=== PATIENT | male | born 1945 | race Caucasian/White ===

== ENCOUNTER → 2016-06-30 | Outpatient (CLI) | payer BC ==
[~2016-06-30] MED LIST: CEPH-507 PO; CLIN-80 PO; DAPS25TA2 PO; LISI10TA2 PO; VICODIN 5-325 MG TAB PO
--- NOTE | 2016-06-30 13:13 | Diagnostic Imaging Report ---
PA and lateral chest at 1218 hours. INDICATION: Cough. There are no prior studies available for comparison. FINDINGS: The heart is enlarged and there are sternotomy wires and surgical clips evident consistent with prior coronary artery bypass procedure. There is minimal scar formation in each lung base. The lungs are otherwise generally clear. There is no sign of failure, pneumonia or pleural effusion to suggest an acute abnormality. The mediastinum is not widened. The osseous structures are intact. IMPRESSION: There is cardiomegaly and evidence of prior cardiac surgery, but there is no sign of an acute cardiopulmonary abnormality. Dictated by: Dictated on workstation # [id number]
== END ==
LOC: RAD 11:54
PROVIDERS: ATTEND Family Medicine
DX: I51.7 Cardiomegaly (principal); R05 Cough
CPT/HCPCS: 71020

== ENCOUNTER 2016-08-02 08:15 | Emergency (ER) | payer BC ==
[~2016-08-02] VITALS: Ht 177.8 cm; Wt 104.8 kg
[2016-08-02] MEDS ORDERED: ASPI-586 PO (08:34)
[2016-08-02] MEDS ORDERED: DOXY100T2 PO (09:06)
--- NOTE | 2016-08-02 09:06 | ED Integumentary General ---
General Chief Complaint: Bite-Animal/Human/Insect Stated Complaint: R LEG SORE ON CALF Nursing Triage Note: PT CO R CALF POSSIBLY HAVING A SPIDER BITE, AREA IS REDDEND W BRUISE NOTED. APPROX 8CM LENGTH AND 3CM WIDE. PT DENIES PAIN TO AREA BUT STATES DOES HAVE ITCHING. STARTED ITCHING APPROX 1900 LAST PM Source: patient Exam Limitations: no limitations History of Present Illness Time seen by provider: 08:54 Initial Comments This 70-year-old gentleman presents to the emergency room with discoloration on the right lateral calf. He reports it was intensely pruritic yesterday and he scratched hard on the skin for a while. He now has a petechial and ecchymotic discoloration. He is concerned because it has a similar appearance to prior spider bites, one of which required surgical intervention. The itching has now resolved. Skin is nonblanching and not warm. He has no other symptoms. Allergies and Home Medications Allergies Coded Allergies: No Known Drug Allergies (Unverified , 10/08/13) Home Medications Aspirin 81 Mg Tablet.dr, 81 MG PO DAILY, (Reported) Doxycycline Hyclate 100 Mg Tablet, 100 MG PO BID, #14 Prescribed by: LIZETT FELIX on 08/02/16 0906 Constitutional: no symptoms reported EENTM: no symptoms reported Respiratory: no symptoms reported Cardiovascular: no symptoms reported Gastrointestinal: no symptoms reported Genitourinary: no symptoms reported Musculoskeletal: no symptoms reported Skin: see HPI Psychiatric/Neurological: No Symptoms Reported Endocrine: No Symptoms Reported Past Fevppiq-Nkzcfo-Admzpb Hx Patient Social History Alcohol Use: Denies Use Recreational Drug Use: No Smoking Status: Never a Smoker Recent Foreign Travel: No Contact w/Someone Who Travel: No Recent Infectious Disease Expo: No Recent Hopitalizations: No Immunizations Up To Date Tetanus Booster (TDap): Less than 5yrs Date of Pneumonia Vaccine: Oct 11, 2013 Surgeries HX Surgeries: Yes (HERNIA, I&D SPIDER BITE INNER LEFT GROIN) Surgeries: CABG Respiratory Hx Respiratory Disorders: No Cardiovascular Hx Cardiac Disorders: Yes (STENTS, BYPASS) Cardiac Disorders: Coronary Artery Disease, Hypertension Neurological Hx Neurological Disorders: No Reproductive System Hx Reproductive Disorders: No Sexually Transmitted Disease: No Genitourinary Hx Genitourinary Disorders: No Gastrointestinal Hx Gastrointestinal Disorders: No Musculoskeletal Hx Musculoskeletal Disorders: No Endocrine Hx Endocrine Disorders: No HEENT HX ENT Disorders: No Cancer Hx Cancer: No Psychosocial Hx Psychiatric Problems: No Integumentary HX Skin/Integumentary Disorder: No Blood Transfusions Hx Blood Disorders: No Family Medical History Family Medial History: Diabetes mellitus 19 FATHER Myocardial infarction 19 FATHER Physical Exam Vital Signs Vital Sign - Last 12Hours 08/02/16 08:20 Temp 96.5 Pulse 61 Resp 18 B/P (MAP) 160/87 Pulse Ox 97 Capillary Refill : Less Than 3 Seconds General Appearance: WD/WN, no apparent distress HEENT: normal ENT inspection Respiratory: normal breath sounds Neurologic/Psychiatric: alert, normal mood/affect, oriented x 3, depressed affect Skin: warm/dry Skin Problem Location: lower extremities Skin Problem Character: petechial, other (ecchymotic and petechial patch of skin on the right lateral calf. No heat, blanching erythema, swelling, or tenderness) Progress/Results/Core Measures Results/Orders Vital Signs/I&O Vital Sign - Last 12Hours 08/02/16 08/02/16 08:20 09:12 Temp 96.5 96.5 Pulse 61 61 Resp 18 18 B/P (MAP) 160/87 Pulse Ox 97 97 Blood Pressure Mean: 111 Progress Note : Progress Note Skin changes could be related to petechial trauma from intense scratching or from a spider bite. Doxycycline was prescribed for secondary infection prevention. Margins of the affected skin were marked with a skin marker. Departure Impression Impression: Primary Impression: Petechial rash Disposition: 01 HOME, SELF-CARE Condition: Stable Departure-Patient Inst. Decision time for Depature: 09:00 Referrals: LEIA ARMSTRONG MD (PCP/Family) Primary Care Physician Patient Instructions: Skin Rash Add. Discharge Instructions: Complete your antibiotic as prescribed. Please be aware of this antibiotic may cause some sensitivity. Return to care if symptoms are worsening or if you develop new symptoms such as fever. All discharge instructions reviewed with patient and/or family. Voiced understanding. Scripts Doxycycline Hyclate (Doxycycline Hyclate) 100 Mg Tablet 100 MG PO BID, #14 TAB Prov: LIZETT SWEENEY MD 08/02/16 LIZETT SWEENEY MD August 02, 2016 09:06
[2016-08-02 09:12] VITALS: BP 160/87
== END 2016-08-02 09:13 | disposition home or self-care (01) ==
LOC: EDUNIT# 08:15 → ER 08:16
DX: R21 Rash and other nonspecific skin eruption (principal); R23.3 Spontaneous ecchymoses; I10 Essential (primary) hypertension; Z95.1 Presence of aortocoronary bypass graft
CPT/HCPCS: 99283

== ENCOUNTER → 2022-09-02 | Outpatient (CLI) | payer MEDICARE, OTHER ==
[~2022-09-02] MED LIST changes: +ASPI-586 PO; +DOXY100T2 PO
== END ==
LOC: CARD 09:17
PROVIDERS: ATTEND Family Medicine
DX: I08.3 Combined rheumatic disorders of mitral, aortic and tricuspid valves (principal); I50.20 Unspecified systolic (congestive) heart failure; I25.10 Atherosclerotic heart disease of native coronary artery without angina pectoris
CPT/HCPCS: 93306

== ENCOUNTER → 2022-09-16 | Outpatient (CLI) | payer MEDICARE | LOC: CARD 13:05 | PROVIDERS: ATTEND Internal Medicine Cardiovascular Disease | DX: R00.1 Bradycardia, unspecified (principal) | CPT/HCPCS: 93225; 93226 ==

== ENCOUNTER 2022-10-07 17:52 | Inpatient (IN) | payer MEDICARE ==
[~2022-10-07] VITALS: Ht 175.2 cm; Wt 72.1 kg
[2022-10-07 18:27] LABS: BASOPHILS % (AUTO) 0 % (0-10); EOSINOPHILS # (AUTO) 0.1 10^3/uL (0.0-0.3); EOSINOPHILS % (AUTO) 2 % (0-10); HEMATOCRIT 30 % (40-54); HEMOGLOBIN 10.7 g/dL (13.3-17.7); LYMPHOCYTES # (AUTO) 0.5 10^3/uL (1.0-4.0); LYMPHOCYTES % (AUTO) 7 % (12-44); MEAN CORPUSCULAR HEMOGLOBIN 34 pg (25-34); MEAN CORPUSCULAR HGB CONC 35 g/dL (32-36); MEAN CORPUSCULAR VOLUME 96 fL (80-99); MEAN PLATELET VOLUME 8.6 fL (9.0-12.2); MONOCYTES # (AUTO) 0.5 10^3/uL (0.0-1.0); MONOCYTES % (AUTO) 7 % (0-12); NEUTROPHILS # (AUTO) 5.5 10^3/uL (1.8-7.8); NEUTROPHILS % (AUTO) 83 % (42-75); PLATELET COUNT 223 10^3/uL (130-400); WHITE BLOOD COUNT 6.6 10^3/uL (4.3-11.0)
[2022-10-07 18:40] LABS: ALBUMIN 3.2 GM/DL (3.2-4.5)
[2022-10-07 18:41] LABS: POTASSIUM 5.1 MMOL/L (3.6-5.0)
[2022-10-07 18:42] LABS: CALCIUM 8.2 MG/DL (8.5-10.1)
--- NOTE | 2022-10-07 18:42 | ED General ---
General Chief Complaint: General Problems/Pain Stated Complaint: IRR LAB RESULTS Nursing Triage Note: Patient states he is here in ER today d/t abnormal lab findings. Patient states he potassium level is low and chloride is low. Patient denies any symptoms. Patient denies any pain anywhere. Source of Information: Patient, Spouse History of Present Illness Date Seen by Provider: Oct 07, 2022 Time Seen by Provider: 18:10 Initial Comments PT ARRIVES VIA POV FROM HOME WIHT AND ANOTHER MALE PT STATES HE HAD LAB DONE LAST WEEK AND AGAIN TODAY--ORDERED THROUGH DR. VILLAR'S OFFICE AND DONE BY [employer] ( OUTSIDE LAB COMPANY CAME TO HIS HOUSE AND [place] [employer]) STATES DR. VILLAR'S OFFICE CALLED TODAY AND WAS TOLD HIS POTASSIUM AND CHLORIDE WERE "CRITICALLY LOW" AND WAS TOLD TO COME TO ER IMMEDIATELY--THEY ALSO STATE "IT IS THE SAME IT WAS LAST WEEK"--BUT WAS NOT ADVISED TO GO TO ER LAST WEEK. HAS NOT SEEN DR. VILLAR OR HIS PCP SINCE LAST WEEK PT STATES HE WAS STARTED ON A DIURETIC 3 WEEKS AGO FOR EDEMA--DOES NOT KNOW NAMES OF MEDICATIONS HE STATES HE LOST 29# IN 2 WEEKS AND NO LONGER HAS SWELLING STATES HE FEELS FINE AND HAS NO COMPLAINTS NO CHEST PAIN NO MORE SHORT OF BREATH THAN NORMAL PT HAS HISTORY OF CAD WITH MULTIPLE STENTS AND THEN CABG IN 2014 ECHOCARDIOGRAM 09/02/22-0EF 25-30% PER MED RECONCILIATION, PT HAS BEEN PRESCRIBED LOSARTAN AND LASIX. ON 09/10/22, SPIRONOLACTONE, METOLAZONE, KCL AND FARXIGA WERE ADDED. PCP: DR. ARMSTRONG [facility] OPERATOR: DR. VILLAR Allergies and Home Medications Allergies Coded Allergies: No Known Drug Allergies (Unverified , 10/08/13) Patient Home Medication List Home Medication List Reviewed: Yes Aspirin (Aspir 81) 81 Mg Tablet.dr, 81 MG PO DAILY, (Reported) Entered as Reported by: COTY KARIMI on 08/02/16 0834 Doxycycline Hyclate (Doxycycline Hyclate) 100 Mg Tablet, 100 MG PO BID Prescribed by: LIZETT FELIX on 08/02/16 0906 Review of Systems Review of Systems Constitutional: no symptoms reported Respiratory: see HPI Cardiovascular: no symptoms reported Gastrointestinal: no symptoms reported Musculoskeletal: no symptoms reported Skin: other (FAMILY STATES HE HAS SORES ON HIS BUTTOCKS--HAS BEEN MOSTLY LAYING IN BED FOR UNKNOWN LENGTH OF TIME) Psychiatric/Neurological: No Symptoms Reported Hematologic/Lymphatic: No Symptoms Reported Immunological/Allergic: no symptoms reported Past Cdssofi-Libuou-Uwzbev Hx Patient Social History Tobacco Use?: No Use of E-Cig and/or Vaping dev: No Substance use?: No Alcohol Use?: No Immunizations Up To Date Tetanus Booster (TDap): Less than 5yrs Influenza Vaccine Up-to-Date: Yes; Up-to-Date Past Medical History Surgeries: Yes (HERNIA, I&D SPIDER BITE INNER LEFT GROIN;MULTIPLE STENTS; 5 VESSEL CABG) Cardiac, CABG, Coronary Stent Respiratory: No Cardiac: Yes (STENTS, BYPASS) Chronic Edema/Swelling, Coronary Artery Disease, Hypertension Neurological: No Reproductive Disorders: No Sexually Transmitted Disease: No Gastrointestinal: No Musculoskeletal: No Endocrine: No Cancer: No Psychosocial: No Integumentary: No Blood Disorders: No Family Medical History Diabetes mellitus 19 FATHER Myocardial infarction 19 FATHER ECHOCARDIOGRAM 09/02/22--EF 25-30% Physical Exam Vital Signs Vital Signs - First Documented 10/07/22 18:03 Temp 35.2 Pulse 57 Resp 14 B/P (MAP) 99/58 (72) O2 Delivery Room Air Capillary Refill : Height, Weight, BMI Height: 5'10.00" Weight: 231lbs. oz. 104.070309ew; 23.00 BMI Method:Stated General Appearance: No Apparent Distress, WD/WN, Thin, Other (LOOKS OLDER THAN STATED AGE; SOMEWHAT LETHARGIC; WEARING A BATH WRAP AROUND HIS WAIST. DRIED URINE DOWN LEGS AND FEET. ) HEENT: PERRL/EOMI, Other (EYES SUNKEN; POOR DENTITION AND ONLY HAS A FEW TEETH) Respiratory: Normal Breath Sounds (DIMINISHED IN BASES), No Accessory Muscle Use, Other (MIKLDLY DYSPNEIC AT REST--TALKS IN 2-4 WORD PHRASES) Cardiovascular: No JVD, No Murmur, Bradycardia, Irregularly Irregular Gastrointestinal: Non Tender, Soft Extremity: Pedal Edema (TRACE ON LEFT. CHRONIC VENOUS STASIS CHANGES BILATERALLY. FAINT PEDAL PULSES ), Other (SCABBED WOUNDS AND OLD BRUISING TO LEFT FOREARM) Neurologic/Psychiatric: Alert, Oriented x3, No Motor/Sensory Deficits, Normal Mood/Affect, actuarial intern II-XII Norm as Tested Skin: Warm/Dry, Pallor Progress/Results/Core Measures Suspected Sepsis SIRS Temperature: Pulse: 57 Respiratory Rate: 14 Laboratory Tests 10/07/22 18:20: White Blood Count 6.6 Blood Pressure 99 /58 Mean: 72 Laboratory Tests 10/07/22 18:20: Creatinine 0.76, Platelet Count 223, Total Bilirubin 1.3H Results/Orders Lab Results Laboratory Tests Test 10/07/22 18:20 Range/Units White Blood Count 6.6 4.3-11.0 10^3/uL Red Blood Count 3.16 L 4.30-5.52 10^6/uL Hemoglobin 10.7 L 13.3-17.7 g/dL Hematocrit 30 L 40-54 % Mean Corpuscular Volume 96 80-99 fL Mean Corpuscular Hemoglobin 34 25-34 pg Mean Corpuscular Hemoglobin Concent 35 32-36 g/dL Red Cell Distribution Width 14.6 H 10.0-14.5 % Platelet Count 223 130-400 10^3/uL Mean Platelet Volume 8.6 L 9.0-12.2 fL Immature Granulocyte % (Auto) 1 % Neutrophils (%) (Auto) 83 H 42-75 % Lymphocytes (%) (Auto) 7 L 12-44 % Monocytes (%) (Auto) 7 0-12 % Eosinophils (%) (Auto) 2 0-10 % Basophils (%) (Auto) 0 0-10 % Neutrophils # (Auto) 5.5 1.8-7.8 10^3/uL Lymphocytes # (Auto) 0.5 L 1.0-4.0 10^3/uL Monocytes # (Auto) 0.5 0.0-1.0 10^3/uL Eosinophils # (Auto) 0.1 0.0-0.3 10^3/uL Basophils # (Auto) 0.0 0.0-0.1 10^3/uL Immature Granulocyte # (Auto) 0.0 0.0-0.1 10^3/uL Neutrophils % (Manual) 87 % Lymphocytes % (Manual) 4 % Monocytes % (Manual) 8 % Eosinophils % (Manual) 1 % Platelet Estimate ADEQUATE Poikilocytosis SLIGHT Sodium Level 115 *L 135-145 MMOL/L Potassium Level 5.1 H 3.6-5.0 MMOL/L Chloride Level 81 L 98-107 MMOL/L Carbon Dioxide Level 22 21-32 MMOL/L Anion Gap 12 5-14 MMOL/L Blood Urea Nitrogen 20 H 7-18 MG/DL Creatinine 0.76 0.60-1.30 MG/DL Estimat Glomerular Filtration Rate 93 BUN/Creatinine Ratio 26 Glucose Level 86 70-105 MG/DL Calcium Level 8.2 L 8.5-10.1 MG/DL Corrected Calcium 8.8 8.5-10.1 MG/DL Magnesium Level 1.8 1.6-2.4 MG/DL Total Bilirubin 1.3 H 0.1-1.0 MG/DL Aspartate Amino Transf (AST/SGOT) 28 5-34 U/L Alanine Aminotransferase (ALT/SGPT) 13 0-55 U/L Alkaline Phosphatase 88 40-136 U/L B-Type Natriuretic Peptide 3066.3 H <100.0 PG/ML Total Protein 5.9 L 6.4-8.2 GM/DL Albumin 3.2 3.2-4.5 GM/DL My Orders Orders - KELLI SHEPARD DO Ed Iv/Invasive Line Start (10/07/22 18:13) Monitor-Rhythm Ecg Trace Only (10/07/22 18:13) Cbc With Automated Diff (10/07/22 18:13) Comprehensive Metabolic Panel (10/07/22 18:13) Magnesium (10/07/22 18:13) Ua Culture If Indicated (10/07/22 18:13) Manual Differential (10/07/22 18:20) Ekg Tracing (10/07/22 18:22) Chest 1 View, Ap/Pa Only (10/07/22 18:35) Ed Iv/Invasive Line Start (10/07/22 18:50) Ns Iv 1000 Ml (Sodium Chloride 0.9%) (10/07/22 19:00) Bnp Cole (10/07/22 18:50) Enoxaparin Injection (Enoxaparin Injecti (10/07/22 19:45) Medications Given in ED Current Medications Medications Dose Ordered Sig/Moo Route Start Time Stop Time Status Last Admin Dose Admin Enoxaparin Sodium 70 mg ONCE ONCE SC 10/07/22 19:45 10/07/22 19:46 DC 10/07/22 19:45 70 MG Vital Signs/I&O 10/07/22 18:03 Temp 35.2 Pulse 57 Resp 14 B/P (MAP) 99/58 (72) O2 Delivery Room Air Capillary Refill : Blood Pressure Mean: 72 Progress Note : Progress Note PT STATES NORMAL HEART RATE 52-55, BP LOW 100'S/50'S NORMALLY. VITALS ON ARRIVAL: HR 40'S-50'S, BP 114/44. O2 SAT 97-99% ON ROOM AIR HEART RATE CONSISTENTLY IN THE 40'S, BP 90'S/40'S DURING ER STAY. AT TIME OF ADMIT, HR IN 50'S AND BP >100 SYSTOLIC, O2 SAT 100% ON ROOM AIR. PT HAD NO COMPLAINTS DURING ER STAY PERTINENT LAB: NA 115, K 5.1, BUN 20, CR 0.7, GLU 93, MG 1.8 HGB 10.7 BNP 3066 EKG WITH MUCH ARTIFACT. BRADYCARDIA WITH IVCD. APPEARS TO BE IN ATRIAL FIBRILLATION ON TELEMETRY, WELL EKG--LIMITED BY ARTIFACT PT DOES NOT HAVE HISTORY OF AFIB GIVEN: -IV FLUIDS -LOVENOX CXR WITH CHF AND PLEURAL EFFUSIONS FAMILY REPORTS AT TIME OF ADMIT THAT HE HAS A COUPLE OF SORES ON HIS BUTTOCKS AND REPORT THAT HE LAYS IN BED NEARLY ALL OF THE TIME DISCUSSED TEST RESULTS, NEED FOR ADMIT AND PT IS AGREEABLE TO PLAN REVIEWED PRIOR RECORDS, INCLUDING ER VISITS, ADMITS, TESTS/PROCEDURES ECG Initial ECG Impression Date: Oct 07, 2022 Initial ECG Impression Time: 18:32 Initial ECG Rate: 44 Initial ECG Intervals SC-NA QRS 156 QT/QTC 494/443 Initial ECG Comparisson: Changed (PRIOR EKG IN 2013) Comment MUCH ARTIFACT. RATE IS SLOW, IRREGULAR AND NO VISIBLE P-WAVES (LIMITED BY ARTIFACT), WITH IVCD INTERPRETED BY ME Diagnostic Imaging Comments CXR--PER RADIOLOGIST REPORT AT 1930 FINDINGS: Lungs/pleura: There is interval blunting of the right costophrenic angle region concerning for a small pleural effusion. There is mild bibasilar atelectasis. There is no pneumothorax. Mediastinum: There is interval slight prominence of the pulmonary vasculature centrally.. Pulmonary vasculature: Unremarkable. Heart: There is interval progression of cardiomegaly. There are postop change to the chest with sternotomy wires. Bones/extrathoracic soft tissue: There are degenerative spurs involving the thoracic spine. IMPRESSION: 1: There is interval progression of cardiomegaly with mild pulmonary vascular prominence centrally which has slightly progressed. Pericardial effusion also cannot be excluded. 2: There is a small right pleural effusion with mild bibasilar atelectasis. Reviewed: Reviewed by Me Departure Communication (Admissions) 1849--SPOKE WITH DR. ARMSTRONG. ACCEPTS PT FOR ADMIT. WILL CONSULT CARDIOLOGY IN AM. Impression Primary Impression: Hyponatremia Additional Impressions: Hyperkalemia Diuretics causing adverse effect in therapeutic use CHF (congestive heart failure) Bilateral pleural effusion HX OF CAD WITH CABG AND STENTS HX OF HTN Abnormal EKG Bradycardia Hypotension New onset atrial fibrillation Disposition: ADMITTED INPATIENT Condition: Stable Admissions Decision to Admit Reason: Admit from ER (General) Decision to Admit/Date: Oct 07, 2022 Time/Decision to Admit Time: 18:50 Departure-Patient Inst. Referrals: LEIA ARMSTRONG MD (PCP/Family) Primary Care Physician KELLI SHEPARD DO Oct 07, 2022 18:42
[2022-10-07 18:43] LABS: TOTAL PROTEIN 5.9 GM/DL (6.4-8.2)
[2022-10-07 18:45] LABS: BILIRUBIN,TOTAL 1.3 MG/DL (0.1-1.0)
[2022-10-07 18:47] LABS: CREATININE SERUM 0.76 MG/DL (0.60-1.30)
[2022-10-07 18:49] LABS: MAGNESIUM 1.8 MG/DL (1.6-2.4)
[2022-10-07 18:52] LABS: EOSINOPHILS % (MANUAL) 1 %; LYMPHOCYTES % (MANUAL) 4 %; MONOCYTES % (MANUAL) 8 %; NEUTROPHILS % (MANUAL) 87 %; PLATELET ESTIMATE ADEQUATE; POIKILOCYTOSIS SLIGHT
[2022-10-07] MEDS ORDERED: NS IV 1000 ML 1,000 ML IV SCH (19:00)
--- NOTE | 2022-10-07 19:26 | Diagnostic Imaging Report ---
CLINICAL INDICATION: Patient with dyspnea. Patient has abnormal lab findings with low potassium and chloride. EXAM: Portable chest x-ray upright view. COMPARISON: Chest x-ray dated 06/30/2016. FINDINGS: Lungs/pleura: There is interval blunting of the right costophrenic angle region concerning for a small pleural effusion. There is mild bibasilar atelectasis. There is no pneumothorax. Mediastinum: There is interval slight prominence of the pulmonary vasculature centrally.. Pulmonary vasculature: Unremarkable. Heart: There is interval progression of cardiomegaly. There are postop change to the chest with sternotomy wires. Bones/extrathoracic soft tissue: There are degenerative spurs involving the thoracic spine. IMPRESSION: 1: There is interval progression of cardiomegaly with mild pulmonary vascular prominence centrally which has slightly progressed. Pericardial effusion also cannot be excluded. 2: There is a small right pleural effusion with mild bibasilar atelectasis. Dictated by: Dictated on workstation # [id number]
[2022-10-07] MEDS ORDERED: ENOXAPARIN 80 MG/0.8 ML SYRINGE SC ONE (19:45)
[2022-10-07 21:03] VITALS: BP 102/62
[2022-10-07 21:15] VITALS: BP 113/53
[2022-10-07 21:30] VITALS: BP 105/58
[2022-10-07 21:45] VITALS: BP 99/75
[2022-10-07] MEDS: NS IV 1000 ML 1,000 ML IV SCH (21:59)
[2022-10-07 22:00] VITALS: BP 110/51
[2022-10-07] MEDS ORDERED: HYDROcodone/ACETAMINOPHEN 5 MG/325 MG TABLET ONE (22:12)
[2022-10-07] MEDS ORDERED: HYDROcodone/ACETAMINOPHEN 5 MG/325 MG TABLET PO PRN (22:15)
[2022-10-08] VITALS: BP 90/66
[2022-10-08 04:00] VITALS: BP 106/57
[2022-10-08 05:22] LABS: BASOPHILS % (AUTO) 0 % (0-10); EOSINOPHILS # (AUTO) 0.1 10^3/uL (0.0-0.3); EOSINOPHILS % (AUTO) 2 % (0-10); HEMATOCRIT 30 % (40-54); HEMOGLOBIN 10.7 g/dL (13.3-17.7); LYMPHOCYTES # (AUTO) 0.5 10^3/uL (1.0-4.0); LYMPHOCYTES % (AUTO) 9 % (12-44); MEAN CORPUSCULAR HEMOGLOBIN 34 pg (25-34); MEAN CORPUSCULAR HGB CONC 36 g/dL (32-36); MEAN CORPUSCULAR VOLUME 95 fL (80-99); MONOCYTES # (AUTO) 0.4 10^3/uL (0.0-1.0); MONOCYTES % (AUTO) 8 % (0-12); NEUTROPHILS % (AUTO) 80 % (42-75); PLATELET COUNT 225 10^3/uL (130-400)
[2022-10-08 05:41] LABS: CALCIUM 8.2 MG/DL (8.5-10.1); CREATININE SERUM 0.71 MG/DL (0.60-1.30); POTASSIUM 4.8 MMOL/L (3.6-5.0)
[2022-10-08] MEDS: NS IV 1000 ML 1,000 ML IV SCH (06:08)
--- NOTE | 2022-10-08 07:38 | History & Physicial ---
History of Present Illness History of Present Illness Reason for visit/HPI 77-year-old male admitted through emergency department late yesterday afternoon after presenting via private vehicle for abnormal labs. Cardiology had ordered labs for October 07, 2022 and he was found to have sodium of 115. Patient has been treated for congestive heart failure as well as significant peripheral edema of the lower extremities. He has apparently lost greater than 20 pounds o woodrow the past few weeks. He does report being very weak. He has not had any significant chest pain. He has been short of breath however especially with exertion. Recent echocardiogram from September 02 revealed 25-30% ejection fraction. He does have a history of coronary artery disease with multiple stents and then coronary artery bypass in 2014. His current meds include losartan and Lasix. He had been also on metolazone and Farxiga Per cardiology over the past few weeks. Date of Admission Oct 07, 2022 at 20:32 Date Seen by a Provider: Oct 08, 2022 Time Seen by a Provider: 06:45 I consulted on this patient on 10/08/22 07:33 Attending Physician Anton Armstrong MD Admitting Physician Admitting Physician: Anton Armstrong MD Attending Physician: Anton Armstrong MD Consult Allergies and Home Medications Allergies Coded Allergies: No Known Drug Allergies (Unverified , 10/08/13) Patient Home Medication List Home Medication List Reviewed: Yes Aspirin (Aspir 81) 81 Mg Tablet.dr, 81 MG PO DAILY, (Reported) Entered as Reported by: COTY KARIMI on 08/02/16 0834 Doxycycline Hyclate (Doxycycline Hyclate) 100 Mg Tablet, 100 MG PO BID Prescribed by: LIZETT FELIX on 08/02/16 0906 Past Lzfbbxb-Rywztv-Ubbwpt Hx Patient Social History Marrital Status: Number of Children: 2 Employed/Student: retired [employer] Smoke Exposure: No Recent Hopitalizations: No Alcohol Use?: No Immunizations Up To Date Tetanus Booster (TDap): Less than 5yrs Date of Pneumonia Vaccine: Oct 11, 2013 Surgeries Yes (HERNIA, I&D SPIDER BITE INNER LEFT GROIN;MULTIPLE STENTS; 5 VESSEL CABG) Cardiac, CABG, Coronary Stent Respiratory No Cardiovascular Yes (STENTS, BYPASS) Chronic Edema/Swelling, Coronary Artery Disease, Hypertension Neurological No Reproductive System Hx Reproductive Disorders: No Sexually Transmitted Disease: No Gastrointestinal No Musculoskeletal No Endocrine History of Endocrine Disorders: No Cancer No Psychosocial History of Psychiatric Problem: No Integumentary History of Skin or Integumenta: No Blood Transfusions History of Blood Disorders: No Family Medical History Other Significan Family Hx: ECHOCARDIOGRAM 09/02/22--EF 25-30% Family Hx: Diabetes mellitus 19 FATHER Myocardial infarction 19 FATHER Review of Systems Constitutional: see HPI Physical Exam Vital Signs Vital Signs - First Documented 10/07/22 10/07/22 18:03 21:03 Temp 35.2 Pulse 57 Resp 14 B/P (MAP) 99/58 (72) Pulse Ox 93 O2 Delivery Room Air Capillary Refill : Height, Weight, BMI Height: 5'10.00" Weight: 231lbs. oz. 104.493083pi; 23.48 BMI Method:Stated General Appearance: Mild Distress (Due to shortness of breath) Eyes: Bilateral Eye Normal Inspection HEENT: Pharynx Normal Neck: Supple Respiratory: Lungs Clear Cardiovascular: Regular Rate, Rhythm (Overall with periods of irregular irregular) Gastrointestinal: Soft Rectal: Deferred Back: Other (Open wounds buttocks) Neurologic/Psychiatric: Alert, Oriented x3 Skin: Normal Color (Somewhat pale) Comments [facility] [place] NAME: SANJEEV ALVA Narayan [facility] REC#: [id number] PT STATUS: REG ER : 1945 PHYSICIAN: KELLI SHEPARD DO ADMIT DATE: 10/07/22/ER Signed Date of Exam:10/07/22 CHEST 1 VIEW, AP/PA ONLY CLINICAL INDICATION: Patient with dyspnea. Patient has abnormal lab findings with low potassium and chloride. EXAM: Portable chest x-ray upright view. COMPARISON: Chest x-ray dated 06/30/2016. FINDINGS: Lungs/pleura: There is interval blunting of the right costophrenic angle region concerning for a small pleural effusion. There is mild bibasilar atelectasis. There is no pneumothorax. Mediastinum: There is interval slight prominence of the pulmonary vasculature centrally.. Pulmonary vasculature: Unremarkable. Heart: There is interval progression of cardiomegaly. There are postop change to the chest with sternotomy wires. Bones/extrathoracic soft tissue: There are degenerative spurs involving the thoracic spine. IMPRESSION: 1: There is interval progression of cardiomegaly with mild pulmonary vascular prominence centrally which has slightly progressed. Pericardial effusion also cannot be excluded. 2: There is a small right pleural effusion with mild bibasilar atelectasis. Dictated by: Dictated on workstation # [id number] Dict: 10/07/221919 Trans: 10/07/221999 [facility] [id number] Interpreted by: ROSALIND ROME MD Electronically signed by: ROSALIND ROME MD 10/07/221999 Assessment/Plan Assessment and Plan 1. Hyponatremia severe -Daily sodium checks -IV fluids consisting of normal saline at 120 cc/h currently 2. Hyperkalemia -Monitor 3. Congestive heart failurehistory of -Cardiology consultation 4. Coronary artery disease 5. Wounds to the buttocks -wound care consult 6. Lower extremity edema and this has improved -Careful hydration and monitoring of edema Admission Diagnosis 1. Hyponatremia severe 2. Hyperkalemia 3. Congestive heart failurehistory of 4. Coronary artery disease 5. Wounds to the buttocks 6. Lower extremity edema and this has improved Admission Status: Inpatient Order (span 2 midnights) Reason for Inpatient Admission: Cardiology consultation. Wound care consultation. IV fluid rehydration and monitoring of sodium ANTON ARMSTRONG MD Oct 08, 2022 07:38
[2022-10-08 07:43] VITALS: BP 115/70
[2022-10-08] MEDS ORDERED: ENOXAPARIN 80 MG/0.8 ML SYRINGE SC SCH (08:00)
--- NOTE | 2022-10-08 08:02 | Consultation-Cardiology ---
HPI-Cardiology Cardiology Consultation: Date of Consultation 10/08/22 Time Seen by a Provider: 10:15 Date of Admission 10-07-22 Attending Physician Anton Paez MD Admitting Physician Admitting Physician: Anton Paez MD Attending Physician: Anton Paez MD Consulting Physician Viviane Montenegro MD HPI: Chief Complaint: CHF New onset a-fib with slow ventricular response Gen weakness Mr. Fuller is a 77 yr old male who has been admitted to [facility] from the ED with increasing weakness, new onset a-fib with slow ventricular response, hyponatremia and CHF. He reports increasing weakness over the last couple weeks to the point that he can not get out of his chair to carry out normal activities. No c/o CP, palpitations, syncope, near syncope. LE swelling has improved. Review of Systems-Cardiology Review of Systems Constitutional: No chills, No fever; malaise Eyes: No vision change Ears/Nose/Throat: No epistaxis, No recent hearing loss Respiratory: As described under HPI Cardiovascular: As described under HPI Gastrointestinal: No diarrhea, No nausea, No vomiting Genitourinary: No hematuria Musculoskeletal: no symptoms reported Skin: No rash on exposed areas, No ulcerations on exposed areas Psychiatric/Neurological: No anxiety, No depression, No seizure, No focal weakness, No syncope Hematologic: No bleeding abnormalities MYO-Zrjtcg-Gocquu Hx Patient Social History Marrital Status: Number of Children: 2 Employed/Student: retired [employer] Smoke Exposure: No Alcohol Use?: No Immunizations Up To Date Tetanus Booster (TDap): Less than 5yrs Date of Pneumonia Vaccine: Oct 11, 2013 Past Medical History PMH As described under Assessment. Family Medical History Family Medical History: Reported family h/o father having CAD. Family History: Diabetes mellitus 19 FATHER Myocardial infarction 19 FATHER Allergies and Home Medications Allergies Coded Allergies: No Known Drug Allergies (Unverified , 10/08/13) Patient Home Medication List Aspirin (Aspir 81) 81 Mg Tablet.dr, 81 MG PO DAILY, (Reported) Entered as Reported by: COTY KARIMI on 08/02/16 0834 Doxycycline Hyclate (Doxycycline Hyclate) 100 Mg Tablet, 100 MG PO BID Prescribed by: LIZETT FELIX on 08/02/16 0906 Physical Exam-Cardiology Physical Exam Vital Signs/I&O 10/08/22 10/08/22 10/08/22 10/08/22 04:00 07:00 07:43 12:14 Temp 35.7 35.9 35.9 Pulse 50 50 55 43 Resp 19 17 17 B/P (MAP) 106/57 (94) 115/70 (85) 103/68 (80) Pulse Ox 97 100 O2 Delivery Room Air Nasal Cannula Nasal Cannula O2 Flow Rate 2.00 2.00 10/08/22 13:00 Pulse 55 10/08/22 00:00 Intake Total 75 ml Output Total 100 ml Balance -25 ml Capillary Refill : Constitutional: AAO x 3, well-developed, well-nourished, other (frail, weak) HEENT: hearing is well preserved, oral hygience is good Neck: No carotid bruit; carotid pulses are 2 + bilaterally Respiratory: No accessory muscle use, No respiratory distress; lungs clear to auscultation Cardiovascular: irregularly irregular, bradycardia, systolic murmur Gastrointestinal: No tender; soft; No guarding; audible bowel sounds Extremities: other (bilat LE swelling) Neurologic/Psychiatric: other (moves all extremities) Skin: pallor; No rash on exposed areas, No ulcerations on exposed areas Data Review Labs Laboratory Tests 10/07/22 18:20: White Blood Count 6.6, Red Blood Count 3.16L, Hemoglobin 10.7L, Hematocrit 30L, Mean Corpuscular Volume 96, Mean Corpuscular Hemoglobin 34, Mean Corpuscular Hemoglobin Concent 35, Red Cell Distribution Width 14.6H, Platelet Count 223, Mean Platelet Volume 8.6L, Immature Granulocyte % (Auto) 1, Neutrophils (%) (Auto) 83H, Lymphocytes (%) (Auto) 7L, Monocytes (%) (Auto) 7, Eosinophils (%) (Auto) 2, Basophils (%) (Auto) 0, Neutrophils # (Auto) 5.5, Lymphocytes # (Auto) 0.5L, Monocytes # (Auto) 0.5, Eosinophils # (Auto) 0.1, Basophils # (Auto) 0.0, Immature Granulocyte # (Auto) 0.0, Neutrophils % (Manual) 87, Lymphocytes % (Manual) 4, Monocytes % (Manual) 8, Eosinophils % (Manual) 1, Platelet Estimate ADEQUATE, Poikilocytosis SLIGHT, Sodium Level 115*L, Potassium Level 5.1H, Chloride Level 81L, Carbon Dioxide Level 22, Anion Gap 12, Blood Urea Nitrogen 20H, Creatinine 0.76, Estimat Glomerular Filtration Rate 93, BUN/Creatinine Ratio 26, Glucose Level 86, Calcium Level 8.2L, Corrected Calcium 8.8, Magnesium Level 1.8, Total Bilirubin 1.3H, Aspartate Amino Transf (AST/SGOT) 28, Alanine Aminotransferase (ALT/SGPT) 13, Alkaline Phosphatase 88, B-Type Natriuretic Peptide 3066.3H, Total Protein 5.9L, Albumin 3.2 10/08/22 04:58: White Blood Count 5.0, Red Blood Count 3.18L, Hemoglobin 10.7L, Hematocrit 30L, Mean Corpuscular Volume 95, Mean Corpuscular Hemoglobin 34, Mean Corpuscular Hemoglobin Concent 36, Red Cell Distribution Width 14.4, Platelet Count 225, Mean Platelet Volume 9.0, Immature Granulocyte % (Auto) 0, Neutrophils (%) (Auto) 80H, Lymphocytes (%) (Auto) 9L, Monocytes (%) (Auto) 8, Eosinophils (%) (Auto) 2, Basophils (%) (Auto) 0, Neutrophils # (Auto) 4.0, Lymphocytes # (Auto) 0.5L, Monocytes # (Auto) 0.4, Eosinophils # (Auto) 0.1, Basophils # (Auto) 0.0, Immature Granulocyte # (Auto) 0.0, Sodium Level 118*L, Potassium Level 4.8, Chloride Level 86L, Carbon Dioxide Level 23, Anion Gap 9, Blood Urea Nitrogen 18, Creatinine 0.71, Estimat Glomerular Filtration Rate 94, BUN/Creatinine Ratio 25, Glucose Level 72, Calcium Level 8.2L Radiology NAME: SANJEEV FULLER [facility] REC#: [id number] PT STATUS: REG ER : 1945 PHYSICIAN: KELLI SHEPARD DO ADMIT DATE: 10/07/22/ER Signed Date of Exam:10/07/22 CHEST 1 VIEW, AP/PA ONLY CLINICAL INDICATION: Patient with dyspnea. Patient has abnormal lab findings with low potassium and chloride. EXAM: Portable chest x-ray upright view. COMPARISON: Chest x-ray dated 06/30/2016. FINDINGS: Lungs/pleura: There is interval blunting of the right costophrenic angle region concerning for a small pleural effusion. There is mild bibasilar atelectasis. There is no pneumothorax. Mediastinum: There is interval slight prominence of the pulmonary vasculature centrally.. Pulmonary vasculature: Unremarkable. Heart: There is interval progression of cardiomegaly. There are postop change to the chest with sternotomy wires. Bones/extrathoracic soft tissue: There are degenerative spurs involving the thoracic spine. IMPRESSION: 1: There is interval progression of cardiomegaly with mild pulmonary vascular prominence centrally which has slightly progressed. Pericardial effusion also cannot be excluded. 2: There is a small right pleural effusion with mild bibasilar atelectasis. Dictated by: Dictated on workstation # [id number] Dict: 10/07/221919 Trans: 10/07/221999 PJE [id number] Interpreted by: ROSALIND ROME MD Electronically signed by: ROSALIND ROME MD 10/07/221999 ECG Impression ECG Comment A-fib with slow ventricular response EKG of 10-07-22 showed QRS duration of 156 ms A/P-Cardiology Assessment/Admission Diagnosis Ac on chronic systolic CHF - NYHA class 3-4 (see echo below) Newly dx a-fib with slow ventricular response Hyponatremia HTN - currently hypotensive CAD and ischemic CM - CABG x 5 [facility] in [place] in 2014 - Reports LVEF 30-35% at the time of CABG HLD CHF - Echocardiogram of 09-02-[address] Rudd showed mod concentric hypertrophy. LVEF 25-30%. LA mod dilated. RA dilated. Mod MR. Mod AoR. Mild TR. Right pleural effu haresh. PASP 70-75 mmHg Discussion and Recomendations Complex management issue EKG of 10-07-22 and again today shows a-fib with slow ventricular response (not on any rate lowering agents) Acute on chronic systolic CHF which has persisted despite out pt tx optimization Hypotensive and bradycardiac at this time - this limits tx with HF medications such as BB, SUELLEN/ARB Hyponatremia - likely d/t agrressive diuresis vs decompensated systolic CHF - treat with diuretics and low rate IVF D/t continued decompensation with widened QRS, ICM and bradycardia we are advising implantation of BI-Ventricular device We have spoken with Dr. Dash at [facility] who is willing to accept him in transfer for placement We have spoken at great length and in great detail with patient and spouse regarding risk vs benefit of implantation vs conservative management and dismissing home with Hospice; initially they wished to consider their options Dr. Montenegro has spooken with Dr. Paez and upon discussing with patient and family once again they are agreeable to transfer to [place] - arrangements are being made ISRAEL LANCASTER Oct 08, 2022 08:02
[2022-10-08] MEDS ORDERED: LIDOCAINE UROJET 2% GEL 10 ML PKG TOP ONE (09:45)
[2022-10-08] MEDS ORDERED: LIDOCAINE UROJET 2% GEL 10 ML PKG ONE (09:52)
[2022-10-08] MEDS ORDERED: FUROSEMIDE INJECTION 40 MG/4 ML VIAL IVP ONE (10:15)
[2022-10-08] MEDS ORDERED: ACETAMINOPHEN 500 MG TABLET PO PRN (10:30)
[2022-10-08] MEDS ORDERED: HYPOCHLOROUS ACID/NaCl (VASHE) 250 ML IR SCH (10:30)
--- NOTE | 2022-10-08 10:59 | Wound Care Assessment ---
Wound Care Assessment Date Seen by Provider: Oct 08, 2022 Time Seen by Provider: 10:00 Chief Complaint Stage 3 pressure ulcer HPI This pleasant 77 year old gentleman was admitted to the hospital with severe hyponatremia. Martin states that he has lost 20# in the last 2 weeks due to diur esis. He struggles with significant CHF and has developed significant weakness with diuresis. As a result he has also struggled with urinary incontinence. Pressure/moisture injuries have developed to sacrum/bilateral buttock as a result. We discussed methods of treatment and prevention at length. His healing will also be complicated by his anemia and poor ejection fraction. Past Medical History: Admits Heart Disease EF 25-30%, Anemia, abnormal weight loss, moderate PEM, urinary incontinence Smoking Status: Unknown if Ever Smoked Recreational Drug Use: No Alcohol Use: Denies Use Review of Systems General: Fatigue Cardiovascular: Edema Genitourinary: Incontinence Neurological: Weakness Other systems falls at home Exam Vital Signs Date Time Temp Pulse Resp B/P (MAP) Pulse Ox O2 Delivery O2 Flow Rate FiO2 10/08/22 07:43 35.9 55 17 115/70 (85) 100 Nasal Cannula 2.00 Capillary Refill : General Appearance: WD/WN, no apparent distress HEENT: other (normal hearing) Respiratory: no respiratory distress, no accessory muscle use Extremities: other (skin tears left forearm) Neurologic/Psychiatric: alert, normal mood/affect, oriented x 3 Skin: normal color Skin Problem Location: upper extremities, torso Wound assessment: 6.5x6.5x0.1cm. The epithelialization is none. There is no tunneling or undermining. Drainage is large and serous. Granulation is none. Necrotic is large and slough. Margins flat Numerous skin tears to left forearm with stable eschar/dried blood Results Laboratory Tests 10/07/22 18:20: White Blood Count 6.6, Red Blood Count 3.16L, Hemoglobin 10.7L, Hematocrit 30L, Mean Corpuscular Volume 96, Mean Corpuscular Hemoglobin 34, Mean Corpuscular Hemoglobin Concent 35, Red Cell Distribution Width 14.6H, Platelet Count 223, Mean Platelet Volume 8.6L, Immature Granulocyte % (Auto) 1, Neutrophils (%) (Auto) 83H, Lymphocytes (%) (Auto) 7L, Monocytes (%) (Auto) 7, Eosinophils (%) (Auto) 2, Basophils (%) (Auto) 0, Neutrophils # (Auto) 5.5, Lymphocytes # (Auto) 0.5L, Monocytes # (Auto) 0.5, Eosinophils # (Auto) 0.1, Basophils # (Auto) 0.0, Immature Granulocyte # (Auto) 0.0, Neutrophils % (Manual) 87, Lymphocytes % (Manual) 4, Monocytes % (Manual) 8, Eosinophils % (Manual) 1, Platelet Estimate ADEQUATE, Poikilocytosis SLIGHT, Sodium Level 115*L, Potassium Level 5.1H, Chloride Level 81L, Carbon Dioxide Level 22, Anion Gap 12, Blood Urea Nitrogen 20H, Creatinine 0.76, Estimat Glomerular Filtration Rate 93, BUN/Creatinine Ratio 26, Glucose Level 86, Calcium Level 8.2L, Corrected Calcium 8.8, Magnesium Level 1.8, Total Bilirubin 1.3H, Aspartate Amino Transf (AST/SGOT) 28, Alanine Aminotransferase (ALT/SGPT) 13, Alkaline Phosphatase 88, B-Type Natriuretic Peptide 3066.3H, Total Protein 5.9L, Albumin 3.2 10/08/22 04:58: White Blood Count 5.0, Red Blood Count 3.18L, Hemoglobin 10.7L, Hematocrit 30L, Mean Corpuscular Volume 95, Mean Corpuscular Hemoglobin 34, Mean Corpuscular Hemoglobin Concent 36, Red Cell Distribution Width 14.4, Platelet Count 225, Mean Platelet Volume 9.0, Immature Granulocyte % (Auto) 0, Neutrophils (%) (Auto) 80H, Lymphocytes (%) (Auto) 9L, Monocytes (%) (Auto) 8, Eosinophils (%) (Auto) 2, Basophils (%) (Auto) 0, Neutrophils # (Auto) 4.0, Lymphocytes # (Auto) 0.5L, Monocytes # (Auto) 0.4, Eosinophils # (Auto) 0.1, Basophils # (Auto) 0.0, Immature Granulocyte # (Auto) 0.0, Sodium Level 118*L, Potassium Level 4.8, Chloride Level 86L, Carbon Dioxide Level 23, Anion Gap 9, Blood Urea Nitrogen 18, Creatinine 0.71, Estimat Glomerular Filtration Rate 94, BUN/Creatinine Ratio 25, Glucose Level 72, Calcium Level 8.2L Assessment/Plan/Dx Assessment: 1. Stage 3 pressure ulcers sacrum/bilateral buttock 2. Moisture associated dermatitis from urinary incontinence 3. Generalized weakness 4. Abnormal weight loss (iatrogenic) 5. PEM-moderate 6. Anemia 7. Falls 8. Severe hyponatremia Plan: 1. Cleanse daily with Vashe. Apply thick layer barrier ointment to periwound. Silver alginate hydrofiber to wound bed and secure with Allevyn BFD. Change daily and prn soiling. Frequent positional changes to off load 2. Barrier ointment and frequent changes 3. Defer to primary 4. Defer to primary 5. Defer to primary 6. Defer to primary 7. Strengthening would be recommended 8. Defer to primary ADEN ALFRED MD Oct 08, 2022 10:59
[2022-10-08 12:14] VITALS: BP 103/68
--- NOTE | 2022-10-08 12:23 | Consultation-Cardiology ---
HPI-Cardiology Cardiology Consultation: Date of Consultation 10/08/22 Time Seen by a Provider: 10:00 Date of Admission Attending Physician Anton Paez MD Admitting Physician Admitting Physician: Anton Paez MD Attending Physician: Anton Paez MD Consulting Physician JUDE VILLAR MD, MA, FACP, FACC, FSCAI, CCDS Physician requesting consult: Dr Paez HPI: Chief Complaint: CHF New onset a-fib with slow ventricular response Gen weakness Mr. Fuller is a 77 yr old male who has been admitted to [facility] from the ED with increasing weakness, new onset a-fib with slow ventricular response, hyponatremia and CHF. He reports increasing weakness over the last couple weeks to the point that he can not get out of his chair to carry out normal activities. No c/o CP, palpitations, syncope, near syncope. LE swelling has improved. Review of Systems-Cardiology Review of Systems Constitutional: No chills, No fever; malaise Eyes: No vision change Ears/Nose/Throat: No epistaxis, No recent hearing loss Respiratory: As described under HPI Cardiovascular: As described under HPI Gastrointestinal: No diarrhea, No nausea, No vomiting Genitourinary: No hematuria Musculoskeletal: no symptoms reported Skin: No rash on exposed areas, No ulcerations on exposed areas Psychiatric/Neurological: No anxiety, No depression, No seizure, No focal weakness, No syncope Hematologic: No bleeding abnormalities PWK-Ruqucz-Fqtyxf Hx Patient Social History Marrital Status: Number of Children: 2 Employed/Student: retired Smoking Status: Unknown if Ever Smoked 2nd Hand Smoke Exposure: No Alcohol Use?: No Immunizations Up To Date Tetanus Booster (TDap): Less than 5yrs Date of Pneumonia Vaccine: Oct 11, 2013 Past Medical History PMH As described under Assessment. Family Medical History Family Medical History: Reported family h/o father having CAD. Family History: Diabetes mellitus 19 FATHER Myocardial infarction 19 FATHER Allergies and Home Medications Allergies Coded Allergies: No Known Drug Allergies (Unverified , 10/08/13) Patient Home Medication List Home Medication List Reviewed: Yes Aspirin (Aspir 81) 81 Mg Tablet.dr 81 MG PO DAILY, (Reported) Entered as Reported by: COTY KARIMI on 08/02/16 0834 Doxycycline Hyclate (Doxycycline Hyclate) 100 Mg Tablet, 100 MG PO BID Prescribed by: LIZETT FELIX on 08/02/16 0906 Physical Exam-Cardiology Physical Exam Vital Signs/I&O 10/08/22 10/08/22 10/08/22 10/08/22 01:00 04:00 07:00 07:43 Temp 35.7 35.9 Pulse 60 50 50 55 Resp 19 17 B/P (MAP) 106/57 (94) 115/70 (85) Pulse Ox 97 100 O2 Delivery Room Air Nasal Cannula O2 Flow Rate 2.00 10/08/22 12:14 Temp 35.9 Pulse 43 Resp 17 B/P (MAP) 103/68 (80) O2 Delivery Nasal Cannula O2 Flow Rate 2.00 10/08/22 00:00 Intake Total 75 ml Output Total 100 ml Balance -25 ml Capillary Refill : Constitutional: AAO x 3, well-developed, well-nourished, other (frail, weak) HEENT: hearing is well preserved, oral hygience is good Neck: No carotid bruit; carotid pulses are 2 + bilaterally Respiratory: No accessory muscle use, No respiratory distress; lungs clear to auscultation Cardiovascular: irregularly irregular, bradycardia, systolic murmur Gastrointestinal: No tender; soft; No guarding; audible bowel sounds Extremities: other (bilat LE swelling, mod); No clubbing, No cyanosis Neurologic/Psychiatric: other (moves all extremities) Skin: pallor; No rash on exposed areas, No ulcerations on exposed areas Data Review Labs Laboratory Tests 10/07/22 18:20: White Blood Count 6.6, Red Blood Count 3.16L, Hemoglobin 10.7L, Hematocrit 30L, Mean Corpuscular Volume 96, Mean Corpuscular Hemoglobin 34, Mean Corpuscular Hemoglobin Concent 35, Red Cell Distribution Width 14.6H, Platelet Count 223, Mean Platelet Volume 8.6L, Immature Granulocyte % (Auto) 1, Neutrophils (%) (Auto) 83H, Lymphocytes (%) (Auto) 7L, Monocytes (%) (Auto) 7, Eosinophils (%) (Auto) 2, Basophils (%) (Auto) 0, Neutrophils # (Auto) 5.5, Lymphocytes # (Auto) 0.5L, Monocytes # (Auto) 0.5, Eosinophils # (Auto) 0.1, Basophils # (Auto) 0.0, Immature Granulocyte # (Auto) 0.0, Neutrophils % (Manual) 87, Lymphocytes % (Manual) 4, Monocytes % (Manual) 8, Eosinophils % (Manual) 1, Platelet Estimate ADEQUATE, Poikilocytosis SLIGHT, Sodium Level 115*L, Potassium Level 5.1H, Chloride Level 81L, Carbon Dioxide Level 22, Anion Gap 12, Blood Urea Nitrogen 20H, Creatinine 0.76, Estimat Glomerular Filtration Rate 93, BUN/Creatinine Ratio 26, Glucose Level 86, Calcium Level 8.2L, Corrected Calcium 8.8, Magnesium Level 1.8, Total Bilirubin 1.3H, Aspartate Amino Transf (AST/SGOT) 28, Alanine Aminotransferase (ALT/SGPT) 13, Alkaline Phosphatase 88, B-Type Natriuretic Peptide 3066.3H, Total Protein 5.9L, Albumin 3.2 10/08/22 04:58: White Blood Count 5.0, Red Blood Count 3.18L, Hemoglobin 10.7L, Hematocrit 30L, Mean Corpuscular Volume 95, Mean Corpuscular Hemoglobin 34, Mean Corpuscular Hemoglobin Concent 36, Red Cell Distribution Width 14.4, Platelet Count 225, Mean Platelet Volume 9.0, Immature Granulocyte % (Auto) 0, Neutrophils (%) (Auto) 80H, Lymphocytes (%) (Auto) 9L, Monocytes (%) (Auto) 8, Eosinophils (%) (Auto) 2, Basophils (%) (Auto) 0, Neutrophils # (Auto) 4.0, Lymphocytes # (Auto) 0.5L, Monocytes # (Auto) 0.4, Eosinophils # (Auto) 0.1, Basophils # (Auto) 0.0, Immature Granulocyte # (Auto) 0.0, Sodium Level 118*L, Potassium Level 4.8, Chloride Level 86L, Carbon Dioxide Level 23, Anion Gap 9, Blood Urea Nitrogen 18, Creatinine 0.71, Estimat Glomerular Filtration Rate 94, BUN/Creatinine Ratio 25, Glucose Level 72, Calcium Level 8.2L Laboratory Tests 10/07/22 18:20 10/08/22 04:58 A/P-Cardiology Assessment/Admission Diagnosis Ac on chronic systolic CHF - NYHA class 3-4 (see echo below) Newly dx a-fib with slow ventricular response, QRS widened to approx 160 msec Hyponatremia - probably due to CHF and aggressive diuretic therapy H/o HTN - currently relatively low bp CAD and ischemic [facility] [place] [facility] - Reports LVEF 30-35% at the time of CABG HLD CHF - Echocardiogram of 09-02-[address] Rudd showed mod concentric hypertrophy. LVEF 25-30%. LA mod dilated. RA dilated. Mod MR. Mod AoR. Mild TR. Right pleural effusion. PASP 70-75 mmHg Discussion and Recomendations * Complex management * Advise bivent pacemaker and ICD, given low heart rate and QRS 160 msec and CHF III and LVEF less than 30%. I called Dr Dash at [facility] who has kindly accepted the patient in transfer * Reduce diuretics and given NS at a low rate in effort to improve hyponatremia * Low heart rate precludes beta-jackie therapy. Can be considered post pacemaker * Low bp precludes therapy with SUELLEN-inhib/AR* * Hyponatremia precludes therapy with spironolactone * I discussed his CV issues in detail with him and his family * I discussed his case also with Dr Paez on the phone JUDE VILLAR MD FACP [facility] CCDS Oct 08, 2022 12:23
[2022-10-08] MEDS ORDERED: FUROSEMIDE INJECTION 40 MG/4 ML VIAL IVP NR (15:30)
[2022-10-08] MEDS ORDERED: ASPIRIN 81 MG CHEWABLE TABLET PO NR (15:30)
[2022-10-08 16:06] VITALS: BP 104/76
[2022-10-08] MEDS ORDERED: FUROSEMIDE INJECTION 40 MG/4 ML VIAL IVP SCH (17:00)
[2022-10-09] MEDS ORDERED: ASPIRIN 81 MG CHEWABLE TABLET PO SCH (09:00)
== END 2022-10-08 17:02 | disposition short-term general hospital (02) | DRG 291 ==
LOC: EDUNIT# 17:52 → ER 17:56 → CSD 20:32
PROVIDERS: ADMIT Family Medicine; ATTEND Family Medicine
DX: I11.0 Hypertensive heart disease with heart failure (principal); I50.23 Acute on chronic systolic (congestive) heart failure; L89.153 Pressure ulcer of sacral region, stage 3; L89.323 Pressure ulcer of left buttock, stage 3; L89.313 Pressure ulcer of right buttock, stage 3; E87.1 Hypo-osmolality and hyponatremia; E46 Unspecified protein-calorie malnutrition; E87.5 Hyperkalemia; I25.10 Atherosclerotic heart disease of native coronary artery without angina pectoris; Z95.1 Presence of aortocoronary bypass graft; Z95.5 Presence of coronary angioplasty implant and graft; Z79.82 Long term (current) use of aspirin; T50.2X5A Adverse effect of carbonic-anhydrase inhibitors, benzothiadiazides and other diuretics, initial encounter; I48.91 Unspecified atrial fibrillation; I95.9 Hypotension, unspecified; D64.9 Anemia, unspecified; I25.5 Ischemic cardiomyopathy; E78.5 Hyperlipidemia, unspecified; Z68.23 Body mass index [BMI] 23.0-23.9, adult
CPT/HCPCS: 36415; 71045; 80048; 80053; 83735; 83880; 84443; 85007; 85025; 85027; 93005; 93041; 96372